=== PATIENT | female | born 1950 | race Hispanic/Latino ===

== ENCOUNTER 2021-02-17 09:51 | Emergency (ER) | payer SELFPAY ==
[2021-02-17] MEDS ORDERED: Ondansetron ODT 4 MG TAB ONE (12:18)
== END 2021-02-17 13:57 | disposition home or self-care (01) ==
LOC: ERS 09:51
DX: K29.00 Acute gastritis without bleeding (principal)
CPT/HCPCS: 99283; Q0162

== ENCOUNTER 2021-02-26 08:52 | Emergency (ER) | payer SELFPAY ==
[2021-02-26 09:15] LABS: Bilirubin Negative (Negative); Blood, Urine Negative (Negative); Clarity Clear (Clear); Glucose, Urine (Dipstick) Normal (Negative); Ketone, Urine Negative (Negative); Leukocyte Negative Leu/uL (Negative); Nitrite Negative (Negative); Protein, Urine (Dipstick) Negative (Neg-Trace); Specific Gravity, Urine 1.012 (1.002-1.036); Urobilinogen Normal mg/dL (Less than 2); pH, Urine 7.5 (5.0-9.0)
[2021-02-26 09:47] LABS: #Lymphocytes 1.7 thou/uL (1.20-3.40); #Monocytes 0.5 thou/uL (0.11-0.59); #Neutrophils 4.4 thou/uL (1.40-6.50); %Basophils 0.7 % (0.0-1.0); %Eosinophils 0.5 % (0.0-10.0); %Lymphocytes 25.8 % (21.0-51.0); %Monocytes 6.8 % (0.0-10.0); %Neutrophils 66.3 % (42.0-75.0); Hemoglobin 14.6 g/dL (12.0-16.0); Mean Corpuscular HGB CONC 34.2 g/dL (32.0-36.0); Mean Corpuscular Hemoglobin 32.2 pg (27.0-31.0); Mean Platelet Volume 7.9 fL (7.4-10.4); Platelet Count 226 thou/uL (130-400); RBC Distribution Width 12.1 % (11.5-14.5); Red Blood Cell (RBC) Count 4.55 mill/uL (4.20-5.40); White Blood Cell (WBC) Count 6.6 thou/uL (4.8-10.8)
[2021-02-26] MEDS ORDERED: Ondansetron PF 4 MG/2 ML Vial ONE (09:56)
[2021-02-26 10:08] LABS: ALT (SGPT) 32 U/L (8-55); AST (SGOT) 27 U/L (5-34); Albumin 4.2 g/dL (3.4-4.8); Alkaline Phosphatase 107 U/L (40-110); Anion Gap 11 mmol/L (10-20); BUN (Urea Nitrogen) 8 mg/dL (9.8-20.1); Bilirubin, Total 0.6 mg/dL (0.2-1.2); Calc. Creatinine Clearance 0 mL/min (70-130); Calcium 10.3 mg/dL (7.8-10.44); Carbon Dioxide 27 mmol/L (23-31); Chloride 105 mmol/L (98-107); Globulin 3.3 g/dL (2.4-3.5); Glucose 103 mg/dL (83-110); Potassium 3.9 mmol/L (3.5-5.1); Protein, Total 7.5 g/dL (5.8-8.1); Sodium 139 mmol/L (136-145)
[2021-02-26] MEDS ORDERED: ISOVUE-370 76%-LOCM 1 ML ONE (11:47)
[2021-02-26] MEDS ORDERED: Pantoprazole 40 MG VIAL ONE (12:16)
== END 2021-02-26 12:36 | disposition home or self-care (01) ==
LOC: ERS 08:52
DX: R10.9 Unspecified abdominal pain (principal); Z79.899 Other long term (current) drug therapy
CPT/HCPCS: 36415; 74177; 80053; 81003; 83690; 85025; 96374; 96375; C9113; J2405; Q9966